=== PATIENT | female | born 1990 | race Caucasian/White ===

== ENCOUNTER 2017-07-26 01:09 | Outpatient (CLI) | payer MEDICAID ==
[~2017-07-26] VITALS: Ht 167.6 cm; Wt 84.4 kg
[~2017-07-26 01:09] MED LIST: CYCL10TA29 PO; GABA-547 PO; METH-278 PO; ONDA4TAB97 PO; OXYC-865 PO; THYR81.2 PO; VENL150C61 PO; VENL37.594 PO; [UNRECOGNIZED DRUG - CODE]; [UNRECOGNIZED DRUG - CODE] PO
[2017-07-26 01:26] VITALS: BP 136/83
[2017-07-26 01:44] VITALS: BP 134/72; Ht 167.6 cm; Wt 84.4 kg
[2017-07-26] MEDS ORDERED: CALC-521 PO (02:00)
[2017-07-26] MEDS ORDERED: OMEP-218 PO (02:00)
[2017-07-26] MEDS ORDERED: RANI-324 PO (02:00)
[2017-07-26] MEDS ORDERED: ONDANSETRON 4 MG ODT TABDP SL ONE (02:10)
[2017-07-26] MEDS ORDERED: FAMOTIDINE 20 MG TAB PO ONE (02:10)
[2017-07-26 02:30] LABS: PLATELET COUNT, AUTOMATED 328 K/uL (150-450)
[2017-07-26] MEDS ORDERED: APAP/HYDROCODONE 325/5 TAB PO ONE ×2 (03:00→04:05)
[2017-07-26 03:30] VITALS: BP 133/80
[2017-07-26] MEDS ORDERED: PROMETHAZINE 25 MG/ML 1 ML AMP IVP ONE (04:00)
[2017-07-26] MEDS ORDERED: ONDANSETRON 4 MG/2 ML VIAL IVP ONE (04:00)
== END 2017-07-26 05:29 | disposition home or self-care (01) ==
LOC: OB 01:09 → UNDOADMOB 01:09 → L&D 01:09 → OB 01:09 → L&D 05:29 → UNDODISOB 05:29 → EDSTATUS 07-29 03:59
PROVIDERS: ATTEND Student in an Organized Health Care Education/Training Program
DX: O26.893 Other specified pregnancy related conditions, third trimester (principal); Z3A.29 29 weeks gestation of pregnancy
CPT/HCPCS: 36415; 81001; 85025; G0378; G0379; J2405; J2550; S0119; 82040; 82247; 82310; 82374; 82435; 82565; 82947; 84075; 84132; 84155; 84295; 84450; 84460; 84520; 99213

== ENCOUNTER → 2018-03-23 | Outpatient (CLI) | payer MEDICAID ==
[2017-07-26 01:44] VITALS: BMI 30.0
[~2018-03-23] MED LIST changes: +ARMTHY90PT PO; +CALC-521 PO; +CYCL-277 PO; +FLU60VIA41 IM; +HEPA40VI2 IM; +OMEP-218 PO; +RANI-366 PO
== END ==
LOC: LAB 15:24
PROVIDERS: ATTEND Nurse Practitioner Family
DX: E03.9 Hypothyroidism, unspecified (principal)
CPT/HCPCS: 36415; 84443

== ENCOUNTER → 2018-07-02 | Outpatient (CLI) | payer MEDICAID ==
[2017-07-26 01:44] VITALS: BMI 30.0
[2018-07-02 14:43] LABS: PLATELET COUNT, AUTOMATED 329 K/uL (150-450)
[2018-07-02 15:27] LABS: LDL CHOLESTEROL 98 mg/dl
== END ==
LOC: LAB 14:04
PROVIDERS: ATTEND Nurse Practitioner Family
DX: E78.00 Pure hypercholesterolemia, unspecified (principal); F41.9 Anxiety disorder, unspecified; E03.9 Hypothyroidism, unspecified; Z79.899 Other long term (current) drug therapy
CPT/HCPCS: 36415; 82040; 82247; 82310; 82374; 82435; 82465; 82565; 82947; 83718; 84075; 84132; 84155; 84295; 84443; 84450; 84460; 84478; 84520; 85025

== ENCOUNTER → 2018-07-13 | Outpatient (CLI) | payer MEDICAID ==
[2017-07-26 01:44] VITALS: BMI 30.0
[~2018-07-13] MED LIST changes: +[UNRECOGNIZED DRUG - OTHER]
[2018-07-13 16:18] LABS: PLATELET COUNT, AUTOMATED 324 K/uL (150-450)
== END ==
LOC: LAB 15:37
PROVIDERS: ATTEND Nurse Practitioner Family
DX: D75.1 Secondary polycythemia (principal)
CPT/HCPCS: 36415; 85025

== ENCOUNTER → 2018-08-27 | Outpatient (CLI) | payer MEDICAID ==
[2017-07-26 01:44] VITALS: BMI 30.0
== END ==
LOC: RESP 21:23
PROVIDERS: ATTEND Nurse Practitioner Family
DX: G47.30 Sleep apnea, unspecified (principal); G47.61 Periodic limb movement disorder

== ENCOUNTER → 2018-12-07 | Outpatient (CLI) | payer MEDICAID ==
[2017-07-26 01:44] VITALS: BMI 30.0
[~2018-12-07] MED LIST changes: +ALB18R IH; -RANI-366 PO; +RANI-54 PO; +SUMA100T33 PO
== END ==
LOC: RESP 07:50
PROVIDERS: ATTEND Nurse Practitioner Family
DX: R06.02 Shortness of breath (principal)
CPT/HCPCS: 94060; 94726; 94729